=== PATIENT | female | born 1955 | race Caucasian/White ===

== ENCOUNTER 2021-01-03 12:41 | Outpatient (CLI) | payer OTHER, SELFPAY ==
--- NOTE | 2021-01-03 12:50 | USCV_ITS ---
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 Dr Beny Holcomb MD FAC (Electronically Signed) Final Date: 09 January 2021 20:56 S
== END 2021-01-03 12:42 | disposition home or self-care (01) ==
PROVIDERS: PCP Family Medicine; Visit Provider Family Medicine
DX: M79.605 Pain in left leg (principal)
CPT/HCPCS: 93922

== ENCOUNTER → 2022-02-16 14:33 | Outpatient (BNVA) | payer MEDICARE, SELFPAY | PROVIDERS: PCP Family Medicine; Visit Provider Family Medicine | DX: N39.0 Urinary tract infection, site not specified (principal); R39.9 Unspecified symptoms and signs involving the genitourinary system; R60.9 Edema, unspecified; M79.606 Pain in leg, unspecified; G47.9 Sleep disorder, unspecified | CPT/HCPCS: 81000 ==

== ENCOUNTER → 2022-03-13 11:08 | Outpatient (BNVA) | payer MEDICARE, SELFPAY | PROVIDERS: PCP Family Medicine; Visit Provider Clinical Nurse Specialist Adult Health | DX: R10.9 Unspecified abdominal pain (principal); R11.0 Nausea; K29.70 Gastritis, unspecified, without bleeding; K21.9 Gastro-esophageal reflux disease without esophagitis | CPT/HCPCS: 80053; 85025 ==

== ENCOUNTER → 2022-04-10 07:52 | Outpatient (BNVA) | payer MEDICARE, SELFPAY | PROVIDERS: PCP Family Medicine; Visit Provider Family Medicine | DX: K29.70 Gastritis, unspecified, without bleeding (principal); K21.9 Gastro-esophageal reflux disease without esophagitis; I10 Essential (primary) hypertension | CPT/HCPCS: 80061 ==

== ENCOUNTER → 2022-07-13 09:35 | Outpatient (BNVA) | payer MEDICARE, SELFPAY | PROVIDERS: PCP Family Medicine; Visit Provider Family Medicine | DX: Z00.00 Encounter for general adult medical examination without abnormal findings (principal); I10 Essential (primary) hypertension; Z12.11 Encounter for screening for malignant neoplasm of colon; Z12.39 Encounter for other screening for malignant neoplasm of breast; R07.89 Other chest pain | CPT/HCPCS: 80048 ==

== ENCOUNTER 2022-07-21 07:32 | Outpatient (CLI) | payer MEDICARE, SELFPAY ==
--- NOTE | 2022-07-21 07:30 | MM_ITS ---
WS: [id number] BILATERAL SCREENING DIGITAL TOMOSYNTHESIS MAMMOGRAM WITH CAD HISTORY: screening for breast cancer COMPARISON: 09/18/2018 and 03/03/2015 Bilateral CC and MLO views with tomosynthesis and synthetic mammography submitted. Computer aided det ection analyzed. Breast composition: The breasts are heterogeneously dense, which may obscure small masses. No suspici ous masses, microcalcifications or architectural distortion. Benign calcification central RIGHT breas t. MM/[place] [id number] IMPRESSION: BI-RADS: 2-Benign FOLLOW UP: 1 Year Follow-up
== END 2022-07-21 07:33 | disposition home or self-care (01) ==
PROVIDERS: PCP Family Medicine; Visit Provider Family Medicine
DX: Z12.31 Encounter for screening mammogram for malignant neoplasm of breast (principal)
CPT/HCPCS: 77063; 77067

== ENCOUNTER → 2022-10-04 09:02 | Outpatient (BNVA) | payer MEDICARE, SELFPAY | PROVIDERS: PCP Family Medicine; Visit Provider Podiatrist Foot & Ankle Surgery | DX: G57.62 Lesion of plantar nerve, left lower limb (principal); L60.3 Nail dystrophy | CPT/HCPCS: 64455; 73630; 99203; J1100; J3301; J3490 ==

== ENCOUNTER → 2022-11-08 11:06 | Outpatient (BNVA) | payer MEDICARE, SELFPAY | PROVIDERS: PCP Family Medicine; Visit Provider Podiatrist Foot & Ankle Surgery | DX: G57.62 Lesion of plantar nerve, left lower limb (principal); L60.3 Nail dystrophy | CPT/HCPCS: 99213 ==

== ENCOUNTER → 2023-04-24 11:53 | Outpatient (BNVA) | payer MEDICARE, SELFPAY | PROVIDERS: PCP Family Medicine; Visit Provider Clinical Nurse Specialist Adult Health | DX: Z23 Encounter for immunization (principal); I10 Essential (primary) hypertension | CPT/HCPCS: 80053; 80061; 85025 ==

== ENCOUNTER → 2023-04-25 06:59 | Outpatient (BNVA) | payer MEDICARE, SELFPAY | PROVIDERS: PCP Family Medicine; Visit Provider Podiatrist Foot & Ankle Surgery | DX: G57.63 Lesion of plantar nerve, bilateral lower limbs (principal) | CPT/HCPCS: 64455; J1100; J3301; J3490 ==

== ENCOUNTER → 2023-06-06 15:05 | Outpatient (BNVA) | payer MEDICARE, SELFPAY | PROVIDERS: PCP Family Medicine; Visit Provider Clinical Nurse Specialist Adult Health | DX: R00.0 Tachycardia, unspecified (principal); J06.9 Acute upper respiratory infection, unspecified | CPT/HCPCS: 87400; 87426 ==

== ENCOUNTER → 2023-08-09 09:51 | Outpatient (BNVA) | payer MEDICARE, SELFPAY | PROVIDERS: PCP Family Medicine; Visit Provider Podiatrist Foot & Ankle Surgery | DX: G57.61 Lesion of plantar nerve, right lower limb (principal) | CPT/HCPCS: 64455; J1100; J3301; J3490 ==

== ENCOUNTER → 2023-10-24 09:42 | Outpatient (BNVA) | payer MEDICARE, SELFPAY | PROVIDERS: PCP Family Medicine; Visit Provider Clinical Nurse Specialist Adult Health | DX: Z00.00 Encounter for general adult medical examination without abnormal findings (principal); E78.49 Other hyperlipidemia; I10 Essential (primary) hypertension; N95.1 Menopausal and female climacteric states; Z13.820 Encounter for screening for osteoporosis; Z79.899 Other long term (current) drug therapy | CPT/HCPCS: 80053; 80061; 82306; 83036; 85025 ==

== ENCOUNTER 2023-11-28 13:19 | Outpatient (CLI) | payer MEDICARE, SELFPAY ==
--- NOTE | 2023-11-28 13:30 | XR_ITS ---
WS: [email or web address] SCREENING DEXA SCAN [employer] CLINICAL INFORMATION: bone density screening COMPARISON: None. FINDINGS: The L1-L4 bone mineral density measures 0.945. This corresponds to a T score score of -2.1 and Z scor e of -0.9. Left femoral neck bone mineral density measures 0.828 g/cm2. This corresponds to a T score of -1.4 an d Z score of -0.4. Right femoral neck bone mineral density measures 0.857 g/cm2. This corresponds to a T score -1.2of an d Z score of -0.1. Mean femoral neck bone mineral density measures 0.843 g/cm2. This corresponds to a T score of -1.3 an d Z score of -0.3. XR/XR DEXA axial skeleton* [id number] IMPRESSION: Osteopenia lumbar spine. Osteopenia femoral necks. Patient's FRAX calculated 10 year probability for major osteoporotic fracture i s 7.0% and osteoporotic hip fracture is 1.4%.
--- NOTE | 2023-11-28 14:00 | MM_ITS ---
WS: [email or web address] BILATERAL 3D TOMOSYNTHESIS DIGITAL SCREENING MAMMOGRAPHY WITH CAD CLINICAL INFORMATION: breast cancer screening HISTORY: Screening mammogram. No current complaints. COMPARISON: 2022 TECHNIQUE: Bilateral CC and MLO views. FINDINGS: The breasts are composed of heterogeneous fibroglandular density tissue, which can limit the detectio n of small underlying mass lesions. No suspicious mass, asymmetry, calcifications, or architectural d istortion. No evidence of malignancy. Lucent centered calcification RIGHT breast. MM/[place] [id number] IMPRESSION: BI-RADS: 2-Benign FOLLOW UP: 1 Year Follow-up Recommend return to annual screening mammography.
== END 2023-11-28 13:20 | disposition home or self-care (01) ==
LOC: RAD 13:19
PROVIDERS: PCP Clinical Nurse Specialist Adult Health; Visit Provider Clinical Nurse Specialist Adult Health
DX: Z12.31 Encounter for screening mammogram for malignant neoplasm of breast (principal); Z13.820 Encounter for screening for osteoporosis; N95.1 Menopausal and female climacteric states; G57.60 Lesion of plantar nerve, unspecified lower limb; R92.333 Mammographic heterogeneous density, bilateral breasts; R92.1 Mammographic calcification found on diagnostic imaging of breast; M85.80 Other specified disorders of bone density and structure, unspecified site
CPT/HCPCS: 64455; 77063; 77067; 77080; J1100; J3301; J3490

== ENCOUNTER → 2024-07-02 08:15 | Outpatient (BNVA) | payer MEDICARE, SELFPAY | PROVIDERS: PCP Clinical Nurse Specialist Adult Health; Visit Provider Podiatrist Foot & Ankle Surgery | DX: G57.62 Lesion of plantar nerve, left lower limb (principal) | CPT/HCPCS: 64455; J1100; J3301; J3490 ==

== ENCOUNTER → 2024-08-13 07:09 | Outpatient (BNVA) | payer MEDICARE, OTHER, SELFPAY | PROVIDERS: PCP Clinical Nurse Specialist Adult Health; Visit Provider Podiatrist Foot & Ankle Surgery | DX: G57.62 Lesion of plantar nerve, left lower limb (principal) | CPT/HCPCS: 64455; J1100; J3301; J3490 ==

== ENCOUNTER 2025-03-05 08:16 | Outpatient (CLI) | payer MEDICARE, OTHER, SELFPAY ==
--- NOTE | 2025-03-05 08:24 | MM_ITS ---
WS: [email or web address] BILATERAL 3D TOMOSYNTHESIS DIGITAL SCREENING MAMMOGRAPHY WITH CAD CLINICAL INFORMATION: SCREENING HISTORY: Screening mammogram. No current complaints. COMPARISON: 2023 TECHNIQUE: Bilateral CC and MLO views. FINDINGS: The breasts are composed of heterogeneous fibroglandular density tissue, which can limit the detection of small underlying mass lesions. No suspicious mass, asymmetry, calcifications, or architectural distortion. No evidence of malignancy. Lucent centered calcification RIGHT breast MM/MM scr tomosynthesis [id number] IMPRESSION: DENSITY: The breasts are heterogeneously dense, which may obscure small masses. BI-RADS: 2 - Benign FOLLOW UP: 1 Year Follow-up Recommend return to annual screening mammography.
== END 2025-03-05 08:17 | disposition home or self-care (01) ==
LOC: RAD 08:18
PROVIDERS: PCP Clinical Nurse Specialist Adult Health; Visit Provider Electrodiagnostic Medicine
DX: Z12.31 Encounter for screening mammogram for malignant neoplasm of breast (principal); R92.333 Mammographic heterogeneous density, bilateral breasts; R92.323 Mammographic fibroglandular density, bilateral breasts; R92.1 Mammographic calcification found on diagnostic imaging of breast
CPT/HCPCS: 77063; 77067

== ENCOUNTER 2025-05-06 21:15 | Emergency (ER) | payer MEDICARE, SELFPAY ==
--- OUTSIDE RECORDS SUMMARY | 2025-05-06 21:25 | XMS_ITS ---
Author Organization Unknown Results OrderDate OrderTestName ResultName ResultDate Value Units Range AbnormalFlag ResultStatus ObservationNotes TestCode ResultCode DateRecorded AccessionNumber DiagnosticSectionCode DiagnosticSectionName Sequence Interpretation Custom CollectionStartDate CollectionEndDate 08/20/2024 00:00:00 CMP, SERUM OR PLASMA creatinine (serum) 6591-18-89J84:00:00 0.9 mg/dl 0.4-1.5 Final CMP, SERUM OR PLASMA Coding creatinine (serum) 08/20/2024 00:00: 00:00:98WRLlst8852-54-84Q58:00:51194.4x10 140.0-451.0Final Coding CBC Coding plt 08/20/2024 00:00: 00:00:00CMP, SERUM OR PLASMAosmolality 8967-80-86Z71:00:65993.2calcFinal Coding CMP, SERUM OR PLASMA Coding osmolality 08/20/2024 00:00: 00:00:00CMP, SERUM OR PLASMAtotal protein 0679-56-93S16:00:007.8g/dl6.0-8.5Final Coding CMP, SERUM OR PLASMA Coding total protein 08/20/2024 00:00:001 00:00:00MAMMO, SCREENING, DIGITAL, BILATERAL 0102-08-18J76:00:00 Coding MAMMO, SCREENING, DIGITAL, B ILATERAL Coding 03/05/2025 00:00: 00:00:89ZFHrpx4090-11-69Y32:00:0030.6pg27.0-32.0 Final Coding CBC Coding mch 08/20/2024 00:00: 00:00:03KLHujn6710-24-88M15:00:0011.0x104.0-10.5 highFinal Coding CBC Coding wbc 08/20/2024 00:00: 00:00:00CBCmonocytes %1927-12-90I07:00:006.4% 2.0-16.0Final Coding CBC Coding monocytes % 08/20/2024 00:00: 00:00:00LIPID PANEL, BWSFYguor6889-38-75Y87:00:00 71.0mg/dl0.0-150.0Final Coding LIPID PANEL, BLOOD Coding trig 08/20/2024 00:00: 00:00:00CMP, SERUM OR PLASMAaltv (sgpt) 5092-00-06S04:00:0021.0u/l13.0-69.0normalFinal Coding CMP, SERUM OR PLASMA Coding altv (sgpt) 08/20/2024 00:00: 00:00:00CMP, SERUM OR PLASMAalp phos 0313-28-64F20:00:89954.0u/l30.0-140.0normalFinal Coding CMP, SERUM OR PLASMA Coding alp phos 08/20/2024 00:00: 00:00:00LIPID PANEL, BLOODhdl - direct 9416-06-79G55:00:0078.0mg/dl>40.0Final Coding LIPID PANEL, BLOOD Coding hdl - direct 08/20/2024 00:00: 00:00:00CMP, SERUM OR PLASMAbun (blood urea nitrogen)2133-32-75F49:00:0020.0mg/dl10.0-26.0Final Coding CMP, SERUM OR PLASMA Coding bun (blood urea nitrogen) 08/20/2024 00:00: 00:00:00LIPID PANEL, BLOODvldl - direct 3509-47-25U56:00:0014.2mg/dlFinal Coding LIPID PANEL, BLOOD Coding vldl - direct 08/20/2024 00:00: 00:00:00CMP, SERUM OR YAHFOUk416236-60-10I04:00:00 28.0mmol/l22.0-31.0Final Coding CMP, SERUM OR PLASMA Coding c02 08/20/2024 00:00: 00:00:00CMP, SERUM OR PLASMAanion gap 1901-69-96W41:00:008.0calcFinal Coding CMP, SERUM OR PLASMA Coding anion gap 08/20/2024 00:00: 00:00:00CMP, SERUM OR PLASMAegfr calculated 8024-62-00Z13:00:0066.4Final Coding CMP, SERUM OR PLASMA Coding egfr calculated 08/20/2024 00:00: 00:00:00CMP, SERUM OR PLASMAbun/creatinine ratio 0050-37-89M40:00:0022.22ratioFinal Coding CMP, SERUM OR PLASMA Coding bun/creatinine ratio 08/20/2024 00:00: 00:00:00VITAMIN D, 25-HYDROXY, TOTAL, SERUMvitamin d,25-oh,total,qy7372-50-52V16:00:0048ng/qo97-097zvsfkeHrvth Coding VITAMIN D, 25-HYDROXY, TOTAL , SERUM Coding vitamin d,25-oh,total,ia vitamin d,25-oh,total,ia 08/20/2024 00:00: 00:00:00CMP, SERUM OR PLASMAtotal bilirubin 4249-50-82P04:00:000.8mg/dl0.2-1.3Final Coding CMP, SERUM OR PLASMA Coding total bilirubin 08/20/2024 00:00: 00:00:00CMP, SERUM OR PLASMAcalcium 8331-20-78E07:00:009.3mg/dl8.4-10.5Final Coding CMP, SERUM OR PLASMA Coding calcium 08/20/2024 00:00: 00:00:00CMP, SERUM OR PLASMAa/g ratio 4472-66-41C85:00:001.3ratioFinal Coding CMP, SERUM OR PLASMA Coding a/g ratio 08/20/2024 00:00: 00:00:69NRZogx8148-86-74S47:00:0095.5fl80.0-99.9 Final Coding CBC Coding mcv 08/20/2024 00:00: 00:00:00CBCmonocytes #8827-80-25F23:00:000.7x10 Final Coding CBC Coding monocytes # 08/20/2024 00:00: 00:00:00CMP, SERUM OR PLASMAalbumin 9520-59-79F22:00:004.4g/dl3.5-5.5Final Coding CMP, SERUM OR PLASMA Coding albumin 08/20/2024 00:00: 00:00:00CMP, SERUM OR PLASMAglucose 6447-13-93X54:00:0091.0mg/dl60.0-99.0Final Coding CMP, SERUM OR PLASMA Coding glucose 08/20/2024 00:00: 00:00:00LIPID PANEL, BLOODcholesterol 8594-45-42P22:00:60493.0mg/dl0.0-200.0highFinal Coding LIPID PANEL, BLOOD Coding cholesterol 08/20/2024 00:00: 00:00:93CDXjuf5429-47-77S98:00:0042.7%37.0-47.0 Final Coding CBC Coding hct 08/20/2024 00:00: 00:00:00CMP, SERUM OR PLASMApotassium 8520-98-14C47:00:004.0mmol/l3.5-5.1Final Coding CMP, SERUM OR PLASMA Coding potassium 08/20/2024 00:00: 00:00:00CMP, SERUM OR PLASMAglobulin 6978-25-75U03:00:003.4calcFinal Coding CMP, SERUM OR PLASMA Coding globulin 08/20/2024 00:00: 00:00:00CBCgranulcytes %1434-64-20Q83:00:0065.0% 30.0-70.0Final Coding CBC Coding granulcytes % 08/20/2024 00:00: 00:00:00CBClymphocytes %7444-80-35Z21:00:0026.5% 20.0-50.0Final Coding CBC Coding lymphocytes % 08/20/2024 00:00: 00:00:00CMP, SERUM OR PLASMAsodium 7172-18-92E18:00:34925.0mmol/l136.0-145.0Final Coding CMP, SERUM OR PLASMA Coding sodium 08/20/2024 00:00: 00:00:00LIPID PANEL, BLOODldl - direct 9296-13-62C36:00:17208.8mg/dl0.0-130.0highFinal Coding LIPID PANEL, BLOOD Coding ldl - direct 08/20/2024 00:00: 00:00:74VPTxrt0596-26-06K13:00:004.75x815.50-5.50 Final Coding CBC Coding rbc 08/20/2024 00:00: 00:00:00CBClymphocytes #3166-08-67M17:00:002.9x10 Final Coding CBC Coding lymphocytes # 08/20/2024 00:00: 00:00:63DWRhux8216-37-94U97:00:0013.7g/dl12.0-16.0 Final Coding CBC Coding hgb 08/20/2024 00:00: 00:00:00CMP, SERUM OR PLASMAast (sgot) 2927-01-04C13:00:0031.0u/l0.0-46.0Final Coding CMP, SERUM OR PLASMA Coding ast (sgot) 08/20/2024 00:00: 00:00:00CBCgranulcytes#6330-49-77H92:00:007.2x10 Final Coding CBC Coding granulcytes# 08/20/2024 00:00: 00:00:79RCWxbis9775-26-96R67:00:0032.1g/dl 32.0-36.0Final Coding CBC Coding mchc 08/20/2024 00:00: 00:00:00CMP, SERUM OR PLASMAchloride 0615-63-81D89:00:82821.0mmol/l98.0-110.0normalFinal Coding CMP, SERUM OR PLASMA Coding chloride 08/20/2024 00:00: 00:00:96TOSnre3040-52-54F50:00:0013.8%11.5-14.5 Final Coding CBC Coding rdw 08/20/2024 00:00:00
--- OUTSIDE RECORDS SUMMARY | 2025-05-06 21:25 | XMS_ITS | Clinical Summary ---
Author Organization [facility] on Address [address] [place] [address] SON Andrade [id number] Phone Care Team Providers Care Photo Producer Name Role Phone Jesus Murillo DO Primary Care Provider [phone] Social History Tobacco Use Types Packs/Day Years Used Date Smoking Tobacco: Never Assessed Comments Unknown Sex and Gender Information Value Date Recorded Sex Assigned at Not on file Legal Sex Female 3:48 PM CDT Gender Identity Not on file Sexual Orientation Not on file Plan of Treatment Health Maintenance Due Date Last Done Comments DTAP/TDAP/TD VACCINES (1 - Tdap) 09/05/1975 BREAST CANCER SCREENING 1996 COLORECTAL SCREENING 2001 Colorectal Cancer Screening 2001 FIT-DNA Q 3 years 2001 FIT/FOBT Q 1 year 2001 Flex Sig/CT Colonography Q 5 years 2001 PNEUMOCOCCAL VACCINE 50+ YEARS (1 of 1 - PCV) 09/05/19 07 ZOSTER VACCINE (1 of 2) 2006 OSTEOPOROSIS SCREENING 2021 INFLUENZA VACCINE (#1) 2025 RSV VACCINE (60+ or ) (1 - 1-dose 75+ series) 09/05/2031 Insurance [employer] EXCH[employer] [id number] [address] [id number] Care Teams Photo Producer Relationship Specialty Start Date End Date Jesus Murillo DO [address] [place] [address] PCP - General Family Practice 05/25/21
--- OUTSIDE RECORDS SUMMARY | 2025-05-06 21:25 | XMS_ITS | Continuity of Care Document ---
Author Organization Abrahan Acosta, [facility] ([facility]) Address [address] [place] [address] Assessment Encounter Date Assessment Date Assessment LastModified by Organization Details LastModified Time 03/03/2025 03/03/2025 Patient presente d to office today for their Medicare Annual Wellness Visit. Education was provided on healthy nutrition, including a diet rich in fruits and vegetables, minimizing simple carbohydrates, salt, and saturated fats. Encouraged regular cardiovascular exercise such as walking at least 30 minutes daily, 5 times per week. Emphasized preventive health measures and educated pt on fall prevention and community-based lifestyle interventions to help reduce health risks and promote healthy living. [email or web address] Not available 03/03/2025 08:28:59 Plan of Treatment Reminders Order Date Submit Date Provider Last Modified By Organization Details Last Modified Time Details Appointments None recorded. Lab None recorded. Referral None recorded. Procedures None recorded. Surgeries None recorded. Imaging MAMMO, screening, digital, bilateral 2024 025 asurface [facility], [address] [place], [address], 10:18:00 Medication Orders None recorded. Patient TargetsNo targets recorded. Patient Instructions Encounter Date Encounter Id Patient Instructions Last Modified By Organization Details Last Modified Time 03/03/2025 [id number] advance care planning: care instructions Not available 03/03/2025 09:12:38 nutrition for older adults: care instructions [email or web address] Not available 03/03/2025 09:12:38 preventing falls : care instructions [email or web address] Not available 03/03/2025 09:12:38 Learning About Being Physically Active [email or web address] Not available 03/03/2025 09:12:38 Discussed and explained advance directives such as standard forms to the . Face to face discussion lasted for a duration of ___ minutes. [email or web address] Not available 03/03/2025 07:38:02 Reason for Referral None Reported. Results Created Date Observation Date Name Description Value Unit Range Abnormal Flag Note LastModifiedBy Organization Detail LastModifiedTime 03/05/2003/05/2025 MAMMO , scree lewis, digit al, bilat eral No observ ation record ed. [facility] [address] [place], [address], 03/11/2025 11:51:46 Result Notes None recorded. Problems Name Problem SNOMED Code Status Onset Date Resolution Date Notes Provider Name and Address Organization Details Recorded Time Tachycar ileana 1772955 Completed 200408/20/2024 TACHYCAR ILEANA; 10/21/19 05 4:53PM by Jose Caceres MD, Office Visit; Promoted ; acuity set as *; Isela tomlin [facility] 5 09:04:02 History of hysterec colin 166313937 Completed 200408/20/2024 Hysterec colin; Vaginal; 10/21/19 05 4:53PM by Jose Caceres MD, Office Visit; Promoted ; acuity set as *; Isela tomlin [facility] 5 07:57:49 Insomnia 835624433 Active 2004 Insomnia ; 10/21/19 05 4:53PM by Jose Caceres MD, Office Visit; Promoted ; acuity set as *; Isela tomlin [facility] 5 07:57:51 [facility] katja 32774970 Active 2004 [facility]; 10/21/19 05 4:53PM by Jose Caceres MD, Office Visit; Promoted ; acuity set as *; Isela tomlin [facility] [place] 5 07:57:46 Anxiety disorder 262517896 Active [address] [facility] [place] 5 07:58:14 Gastroes ophageal reflux disease without esophagi tis 785835453 Active [address] [facility] [place] 5 07:58:22 Burnette neuroma of bilatera l feet 22603949828 367958 Active [address] [facility] [place] 5 09:04:33 Problem Notes None recorded. Procedures Surgical History Date Name Laterality Status Provider Name and Address Organization Details Recorded Time hysterectomy [facility] 09:02:30 section [facility]24 09:02:46 [facility] bladder [facility] 09:03:26 Imaging Results None recorded. Procedure Notes None recorded. Medical Equipment None Reported. Allergies No known drug allergies Medications Name Sig Start Date Stop Date Status Note LastModified by Organization Details LastModified Time Toprol XL 50 mg tablet,ex tended release QD 08/20 completed Needs appt and lab before more refills! !!!!!!!! !!!!!!!! !!!!; Recorded 11/16/19 06 8:19AM by Harini Solano LPN, Refill Request; Not Available Not Available Not Available atorvasta tin 40 mg tablet TAKE 1 TABLET EVERY EVENING 2024 active Not Available Not Available Not Avai lable benzonata te 200 mg capsule TAKE 1 CAPSULE BY MOUTH 3 TIMES A DAY NEEDED, FOR COUGH. active Not Available Not Available No t Available metoprolo l succinate ER 50 mg tablet,ex tended release 24 hr Take 1 tablet every day by oral route for 90 days, for blood pressure . 2024 active Not Available Not Available Not Avai lable prednison e 20 mg tablet Take 1 tablet every day by oral route for 6 days. 03/05 completed Not Available Not Available Not Available permethri n 5 % topical cream THOROUGH LY MASSAGE INTO SKIN FROM HEAD TO FOOT SOLES ONCE&ALTAF VE FOR 8-14 HOURS THEN THOROUGH LY WASH active Not Available Not Available No t Available amlodipin e 5 mg tablet Take 1 tablet every day by oral route for 90 days, for blood pressure . 2024 active Not Available Not Available Not Avai lable aspirin 81 mg tablet,de layed release Take 1 tablet every day by oral route. active Not Available Not Available No t Available alprazola m 0.5 mg tablet Take 1 tablet twice a day by oral route as needed, for severe anxiety. 2024 active Not Available Not Available Not Avai lable pantopraz ole 40 mg tablet,de layed release Take 1 tablet every day by oral route for 90 days, for acid reflux. 2024 active Not Available Not Available Not Avai lable Mevacor 20 mg tablet QHS / HS 08/20 completed Needs appt before more refills! !!!!!!!! !!!!; Recorded 08/30/19 06 7:58AM by Harini Solano LPN, Refill Request; Not Available Not Available Not Available losartan 100 mg tablet Take 1 tablet every day by oral route for 90 days, for blood pressure . 2024 active Not Available Not Available Not Avai lable magnesium 200 mg tablet Take 1 tablet every day by oral route. active Not Available Not Available No t Available CoQ-10 daily active Not Available Not Availa ble Not Available Alive Women 50 Pls Ult Potency one daily active Not Available Not Available No t Available Vitals Date Recorded Body height Body mass index (BMI) Body weight Oxygen saturation Heart rate Respiratory rate Systolic And Diastolic Provider Name and Address Organization Details Last Updated DateTime 5 165.1 cm 26 kg/m2 70363.8 1 g 98 % 83 /min 18 /min 120/72 mm[Hg] Isela Tao [facility] 08:25:07 Social History Question Answer Notes LastModified by Organizat ion Details LastModified Time Tobacco Smoking Status Former Smoker Isela Dinh tomlin [facility] 08/20/2024 09:05:28 Do You Have An Advance Directive? No Information not available 03/03/2025 Are You Blind Or Do You Have Difficulty Seeing? No Information not available 03/03/2025 What Is Your Level Of Caffeine Consumption? Moderate [email or web address] Information not available 08/20/2024 Are You Deaf Or Do You Have Serious Difficulty Hearing? No Information not available 03/03/2025 When Did You Quit Smoking? 16+yearssinc elastcigaret te Information not available 08/20/2024 What Is Your Current Housing Status? Lives In Own Home Lives Alone Information not available 03/03/2025 Do You Have A Medical Power Of Physical Chemist? No Information not available 03/03/2025 What Was The Date Of Your Most Recent Tobacco Screening? 02/20/2025 [email or web address] Information not available 02/20/2025 Have You Used IV Drugs? No [email or web address] Information not available 08/20/2024 Do You Have Difficulty Walking Or Climbing Stairs? No Information not available 03/03/2025 Do You Have Difficulties Handling Medications? No Information not available 03/03/2025 Do You Have Difficulty Handling Finances? No Information not available 03/03/2025 Do You Have Difficulty Using A Phone? No Information not available 03/03/2025 Do You Have Difficulty With Housekeeping And/or Laundry? No Information not available 03/03/2025 Sex: Unknown Functional Status Question Answer Note LastModified by Organizat ion Details LastModified Time Do you use any illicit or recreational drugs? Yes CBD gummies for sleep [email or web address] Information not available 08/20/2024 Do you or have you ever used any other forms of tobacco or nicotine? No Information not available 08/20/2024 What is your level of alcohol consumption? None Information not available 08/20/2024 Are you able to walk independently without assistance or assistive devices? YESWOREST Information not available 03/03/2025 Do you have difficulty doing errands alone? No Information not available 03/03/2025 Are you able to care for yourself independently? Yes Information not available 03/03/2025 Do you have difficulty dressing, bathing, grooming, or toileting? No Information not available 03/03/2025 Do you or have you ever used any nicotine-free cigarettes, vape, or chewing tobacco? No [email or web address] Information not available 08/20/2024 Mental Status Question Answer Note LastModified by Organization D etails LastModified Time Do you have difficulty concentrating, remembering or making decisions? No Information no t available 03/03/2025 Family History Relationship Description Onset Age of this Age Resolved Age Notes LastModified by Organization Details LastModified Time Sister Diabetes mellitus [email or web address] Not available 2024 09:00:05 Sister Heart disease [email or web address] Not available 2024 09:02:06 Father Multiple myeloma 75 [email or web address] Not available 2024 09:00:19 Brother Malignant neoplasm of esophagus 65 [email or web address] Not available 2024 09:00:30 Brother Myocardial infarction [email or web address] Not available 08/20 09:01:56 Mother Aneurysm 30 Not availabl e 08/20/2024 09:00:41 Paternal Aunt Malignant neoplasm of breast [email or web address] Not available 2024 09:01:10 Paternal Grandmother Malignant neoplasm of breast [email or web address] Not available 2024 09:01:10 Maternal Grandmother Malignant neoplasm of colon Not available 2024 09:01:24 Maternal Grandmother Diabetes mellitus [email or web address] Not available 2024 09:01:30 Maternal Aunt Malignant neoplasm of breast [email or web address] Not available 2024 09:01:40 Maternal Aunt Malignant neoplasm of breast Not available 2024 09:01:44 Medical History No medical history recorded. Gynecological HistoryNo gynecological history recorded. Obstetrics History GPAL:G 0 P 0 0 0 0 Immunizations Vaccine Type Date Status Note Provider Nam e and Address Organization Details Recorded Time zoster recombinant 9 [facility] 08:52:37 zoster recombinant 9 [facility]/20/2024 08:52:37 Influenza, high-dose, quadrivalent, PF 3 [facility] 08/20/2024 08:52:37 COVID-19, mRNA, LNP-S, PF, 30 mcg/0.3 mL dose [address] [facility] 08/20/2024 08:52:37 COVID-19, mRNA, LNP-S, PF, 30 mcg/0.3 mL dose 1 completed [facility] 08/20/2024 08:52:37 COVID-19, mRNA, LNP-S, PF, 30 mcg/0.3 mL dose 1 completed Isela Tao [facility] 08/20/2024 08:52:37 Influenza, split virus, trivalent, preservative 2 completed [facility] 08/20/2024 08:52:37 Influenza, split virus, trivalent, preservative 1 completed Iselacarmela Santose [facility] 08/20/2024 08:52:37 Past Encounters Encounter ID Performer Location Encounter Start Date Encounter Closed Date Diagnosis/Indication Diagnosis SNOMED-CT Code Diagnosis ICD10 Code Diagnosis IMO Codes Diagnosis Note [id number] IZAIAH HARRIS [facility] ([facility]) [address] [place] [address] 02/20/2025 15:15:34 02/20/2025 17:56:32 Acute upper respiratory infection 01823660 J06.9 2456 Discussed use of otc medication s for symptom management .Push oral fluids and rest.If you develop fever, sob, or start feeling worse then return for re-evaluat ion. [id number] Mitesh Dumont DO [facility] ([facility]) [address] [place] [address] 03/03/2025 08:11:23 03/09/2025 12:01:51 Screening mammography 74401710 Z12.31 Update Mammo. Screening for malignant neoplasm of colon 861590869 Z12.11 [facility]oscop y 11/20/19 at [facility], internal hemorrhoid s, repeat 10 years. Preventive procedure 169 445976 Z00.00 [id number] Advised pt to work on MPOA and Advance Directive, when she gets these done to bring us copies. Essential hypertension 16658130 I10 Stable, continue Amlodipine , Metoprolol , Losartan. Health Concerns Section Related Observation LastModified by Organization Detai ls LastModified Time None Recorded Concern Status LastModified by Organization Details LastModified Time None Recorded Payers Encounter Date Sequence Insurance Name Policy Number Policy Alaniz Covered Member ID Alaniz Member ID Guarantor Name 03/03/2025 1 MEDICARE [place]: [employer] Zohra Jackson [id number] Zohra Deb Manuel 03/03/2025 2 [employer] (MEDICARE SUPPLEMENT) Zohra Jackson [id number] Zohra Boyd Manuel Notes Date Note Type Note Provider Name and Address Organization Details Recorded Time 03/03/2025 text/html Medicare Annual Wellness VisitReported by PatientSocial/Behavio ral HistoryFor physical activity, patient reportsdoes not exercise on a regular basisbut reportsrecent increase in physical activityandgood physical condition. For diet and nutrition, patient reportshealthy diet. For fracture risk, patient reportsno history of fractures,no recent explained fracture,no sudden unexplained fractures, andno previous musculoskeletal injuries.Mental Status:For depression risk, patient reportsnever feels sad, empty, or tearful,no loss of interest in activities,no significant changes in weight,no sleep disturbances or insomnia,no agitation,no loss of energy,no feelings of worthlessness or guilt,no thoughts of suicide,no history of depression, andno history of mood disorders. For orientation, patient reportsno disorientation to time,no disorientation to date, andno disorientation to place. For concentration and memory, patient reportsno decreased concentrating ability,no memory lapses or loss, anddoes not forget words. For speech/motor difficulties, patient reportsno speech difficulties,no difficulty expressing formulated concepts,no difficulty with fine manipulative tasks,no difficulty writing/copying,no slowed reaction time, anddoes not knock things over when trying to pick them up.Functional AbilityFor hearing, patient reportsno loss of hearing. For vision, patient reportsno vision problems. For activities of daily living, patient reportsable to bathe with limited or no assistance,able to contol urination and bowels,able to dress with limited or no assistance,able to feed self with limited or no assistance,able to get out of chair or bed with limited or no assistance,able to groom with limited or no assistance, andable to toilet with limited or no assistance. For instrumental activities of daily living, patient reportsable to do house work with limited or no assistance,able to grocery shop with limited or no assistance,able to manage medications with limited or no assistance,able to manage money with limited or no assistance,able to prepare meals with limited or no assistance, andable to use the phone with limited or no assistance. For falls risk assessment, patient reportsno frequent falls while walking,no fall in the past year,no fall since last visit, andno dizziness/vertigo. For home safety, patient reportsno unsafe tamara hazzards,no unsafe stairs,no unsafe gas appliances,working smoke/co detectors,wears protective head gear for biking/high velocity,use of seatbelts,practicing 'safer sex',no vision or hearing loss while driving,no fire arms,has hand bars in the bathroom/shower, andgood lighting in the home.ROS as noted in the HPI Pt presents for Medicare annual wellness visit Doing well. No recent ER visits/ hospitalizations. Continues medications as prescribed, tolerating well. Mood stable, denies any severe anxiety or depression. She admits she doesn't have any interest in leaving the house, worked at the same place for 41 years and is completely happy just staying home. She does get out and do things occasionally. She was seen in [place] on 02/20/25 for URI, treated with Prednisone and Benzonatate, admits she only took 1 day of Prednisone and felt better so didn't continue. No recent fall or injury. No recent change in memory. For years she has gone into a room and forgotten what she went in there for, has to go back and start over.Occasionally forgets a name when trying to write something down. No Advance Directive [facility]. She has talked to her daughter about this several times, however they haven't ever gone and had anything official done. Lives alone, no issues with performing ADL's. Mammo last 11/28/23: benign, recommend 1 year f/u. Colonoscopy 11/20/19 at [facility] with myself: internal hemorrhoids, repeat 10 years. Bone Scan 11/28/23:IMPRESSION:Os teopenia lumbar spine. Osteopenia femoral necks.Patient's FRAX calculated 10 year probability for major osteoporotic fracture is 7.0% and osteoporotic hip fracture is 1.4%. Former smoker Mitesh Dumont, DO [address] [place], [phone], [facility] [place] 03/03/2025 09:12:14 OBGyn Episode No OBEpisode recorded.
--- OUTSIDE RECORDS SUMMARY | 2025-05-06 21:26 | XMS_ITS | Data Portability ---
Author Organization [facility] Abrahan Ron [facility] Address [address] [id number] Assessment Encounter Date Assessment Date Assessment LastModified by Organization Details LastModified Time 08/20/2024 08/20/2024 Document scribed by Abilio Maldonado, Grocery Clerk Selling. I was present during interview and exam. I have reviewed and agree with above documentation. Dr. Mitesh Dumont. A Care Coordination Assessment form was filled out as part of this patient's office visit today. Counseled on Medicare Wellness, will see pt every 6 months, once yearly for Medicare wellness, once yearly for f/u with lab. I reviewed [facility] records, and confirmed mammogram, bone density scan,. no recent colonoscopy. will try to obtain [facility] records for this. [email or web address] Not available 08/20/2024 09:35:12 03/03/2025 03/03/2025 Patient presente d to office [...] Modified Time Details Appointments None recorded. Lab vitamin D, 25-hydroxy, total, serum 2024 025 Boxed [facility], [address] [place] [address] 248, [address] [place], [address], 07:23:51 CMP, serum or plasma 2024 025 [facility], [address], [facility], [place], [address], 11:33:41 lipid panel, blood 2024 025 [facility], [address], [address], [place], [address], 11:33:44 CBC 2024 025 [facility], [address], [facility], [place], [address], 11:00:14 Referral None recorded. Procedures None recorded. Surgeries None recorded. Imaging MAMMO, screening, digital, bilateral 2024 025 [facility], [address] [place], [address], 10:18:00 Medication Orders benzonatate 200 mg capsule 2024 025 [facility] #[id number], [address], [facility], [place], [address], 15:31:56 prednisone 20 mg tablet 2024 025 [facility] #[id number], [address], [place], [address], 05:01:15 permethrin 5 % topical cream 2024 025 [facility] #[id number], [address], [facility], [place], [address], 17:24:41 pantoprazol e 40 mg tablet,mahin yed release 2024 025 [facility], [address], [place], [address], 09:34:31 amlodipine 5 mg tablet 2024 025 [facility], [address], [place], [address], 09:34:30 losartan 100 mg tablet 2024 025 [facility], [address], [place], [address], 09:34:31 metoprolol succinate ER 50 mg tablet,exte nded release 24 hr 2024 025 [facility], [address], [place], [address], 09:34:30 alprazolam 0.5 mg tablet 2024 025 [facility], [address], [place], [address], 09:34:33 Patient TargetsNo targets recorded. Patient Instructions Encounter Date Encounter Id Patient Instructions Last Modified By Organization Details Last Modified Time 03/03/2025 [id number] advance care planning: care instructions [email or web address] Not available 03/03/2025 09:12:38 nutrition for older adults: care instructions [email or web address] Not available 03/03/2025 09:12:38 preventing falls : care instructions [email or web address] Not available 03/03/2025 09:12:38 Learning About Being Physically Active [email or web address] Not available 03/03/2025 09:12:38 Discussed and explained advance directives such as standard forms to the . Face to face discussion lasted for a duration of ___ minutes. [email or web address] Not available 03/03/2025 07:38:02 Reason for Referral None Reported. Results Created Date Observation Date Name Description Value Unit Range Abnormal Flag Note LastModifiedBy Organization Detail LastModifiedTime 08/21/1908/20/2024 CBC WBC 11.0 x10 4.0-10 .5 high Not Available [facility] [address], [place], [address], 08/20/2024 11:00:14 08/21/19 25 08/20/2024 CBC RBC 4.47 x10 3.50-5 .50 Not Available [facility] [address], [place], [address], 08/20/2024 11:00:14 08/21/1908/20/2024 CBC HGB 13.7 g/dL 12.0-1 6.0 Not Available [facility] [address] [facility], [place], [address], 08/20/2024 11:00:14 08/21/1908/20/2024 CBC HCT 42.7 % 37.0-4 7.0 Not Available [facility] [address] [facility], [place], [address], 08/20/2024 11:00:14 08/21/1908/20/2024 CBC MCV 95.5 fL 80.0-9 9.9 Not Available [facility] [address] [facility] [address] [facility], [place], [address], 08/20/2024 11:00:14 08/21/1908/20/2024 CBC MCH 30.6 pg 27.0-3 2.0 Not Available [facility] [address] [facility], [place], [address], 08/20/2024 11:00:14 08/21/1908/20/2024 CBC MCHC 32.1 g/dL 32.0-3 6.0 Not Available [facility] [address] [facility], [place], [address], 08/20/2024 11:00:14 08/21/19 25 08/20/2024 CBC RDW 13.8 % 11.5-1 4.5 Not Available [facility] [address] [facility], [place], [address], 08/20/2024 11:00:14 08/21/19 25 08/20/2024 CBC plt 294.4 x10 140.0- 451.0 Not Available [facility] [address] [facility] [address], [place], [address], 08/20/2024 11:00:14 08/21/1908/20/2024 CBC lymphocytes % 26.5 % 20.0-5 0.0 Not Available [facility] [address] [facility] [address], [place], [address], 08/20/2024 11:00:14 08/21/19 25 08/20/2024 CBC granulcytes % 65.0 % 30.0-7 0.0 Not Available [facility] [address] [address], [place], [address], 08/20/2024 11:00:14 08/21/19 25 08/20/2024 CBC monocytes % 6.4 % 2.0-16 .0 Not Available [facility] [address] [facility], [place], [address], 08/20/2024 11:00:14 08/21/19 25 08/20/2024 CBC granulcytes# 7.2 x10 Not Briana ilable [facility] [address] [facility], [place], [address], 08/20/2024 11:00:14 08/21/19 25 08/20/2024 CBC lymphocytes # 2.9 x10 Not Available [facility] [address] [facility] [address], [place], [address], 08/20/2024 11:00:14 08/21/19 25 08/20/2024 CBC monocytes # 0.7 x10 Not [facility] [address] [facility] [address], [place], [address], 08/20/2024 11:00:14 08/21/19 25 08/20/2024 CMP (FEMA LE) glucose 91.0 mg/dL 60.0-9 9.0 Not Available [facility] [address] [facility] [address], [place], [address], 08/20/2024 11:33:41 08/21/19 25 08/20/2024 CMP (FEMA LE) BUN (blood urea nitrogen) 20.0 mg/dL 10.0-2 6.0 Not Available [facility] [address] [facility] [address], [place], [address], 08/20/2024 11:33:41 08/21/19 25 08/20/2024 CMP (FEMA LE) creatinine (serum) 0.9 mg/dL 0.4-1. 5 Not Available [facility] [address] [facility] [address], [place], [address], 08/20/2024 11:33:41 08/21/19 25 08/20/2024 CMP (FEMA LE) BUN/creatini ne ratio 22.22 ratio Not Available [facility] [address] [facility], [place], [address], 08/20/2024 11:33:41 08/21/19 25 08/20/2024 CMP (FEMA LE) eGFR calculated 66.4 Not Available [facility] [address] [facility], [place], [address], 08/20/2024 11:33:41 08/21/19 25 08/20/2024 CMP (FEMA LE) total protein 7.8 g/dL 6.0-8. 5 Not Available [facility] [address] [facility], [place], [address], 08/20/2024 11:33:41 08/21/19 25 08/20/2024 CMP (FEMA LE) total bilirubin 0.8 mg/dL 0.2-1. 3 Not Available [facility] [address] [facility], [place], [address], 08/20/2024 11:33:41 08/21/19 25 08/20/2024 CMP (FEMA LE) albumin 4.4 g/dL 3.5-5. 5 Not Available [facility] [address] [facility], [place], [address], 08/20/2024 11:33:41 08/21/19 25 08/20/2024 CMP (FEMA LE) globulin 3.4 calc Not Available [email or web address] [address] [facility], [place], [address], 08/20/2024 11:33:41 08/21/19 25 08/20/2024 CMP (FEMA LE) AST (SGOT) 31.0 U/L 0.0-46 .0 Not Available [facility] [address] [facility], [place], [address], 08/20/2024 11:33:41 08/21/19 25 08/20/2024 CMP (FEMA LE) altv (SGPT) 21.0 U/L 13.0-6 9.0 normal Not Available [facility] [address] [facility], [place], [address], 08/20/2024 11:33:41 08/21/19 25 08/20/2024 CMP (FEMA LE) A/G ratio 1.3 ratio Not Available [facility] [address] [facility], [place], [address], 08/20/2024 11:33:41 08/21/19 25 08/20/2024 CMP (FEMA LE) ALP phos 108.0 U/L 30.0-1 40.0 normal Not Available [facility] [address] [facility] [address], [place], [address], 08/20/2024 11:33:41 08/21/19 25 08/20/2024 CMP (FEMA LE) calcium 9.3 mg/dL 8.4-10 .5 Not Available [facility] [address] [facility], [place], [address], 08/20/2024 11:33:41 08/21/19 25 08/20/2024 CMP (FEMA LE) sodium 139.0 mmol/ L 136.0- 145.0 Not Available [facility] [address] [facility] [address], [place], [address], 08/20/2024 11:33:41 08/21/19 25 08/20/2024 CMP (FEMA LE) potassium 4.0 mmol/ L 3.5-5. 1 Not Available [facility] [address] [facility] [address], [place], [address], 08/20/2024 11:33:41 08/21/19 25 08/20/2024 CMP (FEMA LE) chloride 103.0 mmol/ L 98.0-1 10.0 normal Not Available [facility] [address] [facility], [place], [address], 08/20/2024 11:33:41 08/21/19 25 08/20/2024 CMP (FEMA LE) C02 28.0 mmol/ L 22.0-3 1.0 Not Available [facility] [address] [facility], [place], [address], 08/20/2024 11:33:41 08/21/19 25 08/20/2024 CMP (FEMA LE) anion gap 8.0 calc Not Available [facility] [address] [facility] [address], [place], [address], 08/20/2024 11:33:41 08/21/19 25 08/20/2024 CMP (FEMA LE) osmolality 289.2 calc Not Available [facility] [address] [facility] [address], [place], [address], 08/20/2024 11:33:41 08/21/19 25 08/20/2024 LIPID PROFI LE (FEMA LE) cholesterol 243.0 mg/dL 0.0-20 0.0 high Not Available [facility] [address] [facility] [address], [place], [address], 08/20/2024 11:33:44 08/21/19 25 08/20/2024 LIPID PROFI LE (FEMA LE) trig 71.0 mg/dL 0.0-15 0.0 Not Available [facility] [address] [facility] [address], [place], [address], 08/20/2024 11:33:44 08/21/19 25 08/20/2024 LIPID PROFI LE (FEMA LE) HDL - direct 78.0 mg/dL >40.0 Not Available [facility] [address] [facility] [address], [place], [address], 08/20/2024 11:33:44 08/21/19 25 08/20/2024 LIPID PROFI LE (FEMA LE) VLDL - direct 14.2 mg/dL Not Available [facility] [address] [facility] [address], [place], [address], 08/20/2024 11:33:44 08/21/19 25 08/20/2024 LIPID PROFI LE (FEMA LE) LDL - direct 150.8 mg/dL 0.0-13 0.0 high Not Available [facility] [address] [facility] [address], [place], [address], 08/20/2024 11:33:44 08/21/19 25 08/21/2024 VITAM IN D,25- OH,TO SHASHA,I A vitamin D,25-oh,tota l,ia 48 NG/mL 30-100 normal Vitam in D Statu s 25-OH Vitam in D: Defic iency : <20 ng/mL Insuf ficie ncy: 20 - 29 ng/mL Optim al: > or = 30 ng/mL For 25-OH Vitam in D testi ng on patie nts on D2-merritt pplem entat ion and patie nts for whom quant itati on of D2 and D3 fract ions is requi red, the [employer] e[employer](TM ) 25-OH VIT D, (D2,D 3), LC/MS /MS is recom ravinder d: order code 19857 (heather ents >2yrs ). See Note 1 Note 1 For addit ional infor atiya vicente refer to http: //[facility] nubia mcneil.Que stDia gnost ics.c om/fa q/FAQ 199 (This link is being provi ded for infor obed torres/ educkrystle steve purpo ses only. ) Not Available [facility] [address] [place], [address], 08/21/2024 07:23:51 08/21/19 25 11/28/2023 MAMMO , scree lewis, digit al, bilat [facility] [address] [place] [address] [phone] Mammog hayley Report Signed Patien t: Zohra Jackson Unit #: [id number] : [id number] Age/Se x: 68 / F ADM Date: Loc: RAD Room/B ed: Attend ing Dr: Peter red Provid er/Ord ering MD: Peter Louis APRN Date of Servic e: Proced ure(s) : [place] [id number] Access ion Number (s): [id number] [id number] Report Number : [id number] WS: OMCRAD 2 BILATE RAL 3D TOMOSY NTHESI S DIGITA L SCREEN ING MAMMOG HAYLEY WITH CAD CLINIC AL INFORM ATION: breast cancer screen ing HISTOR Y: Screen ing mammog vickie. No curren t compla ints. COMPAR HITESH: 2022 TECHNI QUE: Bilate ral CC and MLO views. FINDIN GS: The breast s are compos ed of hetero geneou s fibrog landul ar densit y tissue , which can limit the detect ion of small underl davide mass lesion s. No suspic ious mass, asymme try, calcif icatio ns, or zahra ectura l distor tion. No eviden ce of malign hanna. [facility] ed calcif icatio n RIGHT breast . ACCESS ION #: [id number] ZA MM/[place] [id number] IMPRES AMENA: BI-RAD S: 2-Mina gn FOLLOW UP: 1 Year Follow -up Recomm end return to annual screen ing mammog hayley. Dictat ed By: Deondre Simmons MD Signed By: Deondre Simmons MD Signed Date/T tamara: 0909 DD/DT: 0907 [email or web address] Not Available 2024 09:22:26 08/21/19 25 11/28/2023 bone densi [facility] [address] [place] [id number] X[address] t: Zohra Jackson Unit #: [id number] : [id number] Age/Se x: 68 / F ADM Date: Loc: RAD Room/B ed: Attend ing Dr: Peter red Provid er/Ord ering MD: Peter Louis APRN Date of Servic e: Proced ure(s) : XR DEXA axial skelet on* [id number] Access ion Number (s): [id number] ZA Report Number : [id number] WS: OMCRAD 2 SCREEN ING DEXA SCAN Communication Specialist LimitedXA CLINIC AL INFORM ATION: bone densit y screen ing COMPAR HITESH: None. FINDIN GS: The L1-L4 bone minera l densit y measur es 0.945. This corres ponds to a T score score of -2.1 and Z score of -0.9. Left femora l neck bone minera l densit y measur es 0.828 g/cm2. This corres ponds to a T score of -1.4 and Z score of -0.4. Right femora l neck bone minera l densit y measur es 0.857 g/cm2. This corres ponds to a T score -1.2of and Z score of -0.1. Mean femora l neck bone minera l densit y measur es 0.843 g/cm2. This corres ponds to a T score of -1.3 and Z score of -0.3. ACCESS ION #: [id number] ZA XR/XR DEXA axial skelet on* 29974 IMPRES AMENA: Osteop enia lumbar spine. Osteop enia femora l necks. Patien t's FRAX calcul ated 10 year probab ility for major osteop orotic fractu re is 7.0% and osteop orotic hip fractu re is 1.4%. Dictat ed By: Deondre Simmons MD Signed By: Deondre Simmons MD Signed Date/T tamara: 1526 DD/DT: 1525 [email or web address] Not Available 2024 09:24:06 03/05/2003/05/[address], digit al, bilat eral No observ ation record ed. [facility] [address] [place], [address], 03/11/2025 11:51:46 Result Notes Documentation Provider Name and Address Organization Details Recorded Time Mammo, Screening, Digital, Bilateral : [employer] [id number] Mammography Report Signed Patient: Zohra Jackson Unit #: [id number] : 1955 Age/Sex: 68 / F ADM Date: 11/28/23 Loc: RAD Room/Bed: Attending Dr: Peter Loving PLATING TECHNICIAN-C Ordering Provider/Ordering MD: Peter Loving APRN Date of Service: 11/28/23 Procedure(s): [place] [address] Accession Number(s): [id number] Report Number: [id number] WS: OMCRAD2 BILATERAL 3D TOMOSYNTHESIS DIGITAL SCREENING MAMMOGRAPHY WITH CAD CLINICAL INFORMATION: breast cancer screening HISTORY: Screening mammogram. No current complaints. COMPARISON: 2022 TECHNIQUE: Bilateral CC and MLO views. FINDINGS: The breasts are composed of heterogeneous fibroglandular density tissue, which can limit the detection of small underlying mass lesions. No suspicious mass, asymmetry, calcifications, or architectural distortion. No evidence of malignancy. Lucent centered calcification RIGHT breast. MM/[place] [address] IMPRESSION: BI-RADS: 2-Benign FOLLOW UP: 1 Year Follow-up Recommend return to annual screening mammography. Dictated By: Say Simmons MD Signed By: Say Simmons MD Signed Date/Time: 11/29/23908 DD/ 6 Abilio tomlin [facility] 08/20/2024 09:22:26 Problems Name Problem SNOMED Code Status Onset Date Resolution Date Notes Provider Name and Address Organization Details Recorded Time Tachycar ileana 8641885 Completed 200408/20/2024 TACHYCAR ILEANA; 10/21/19 05 4:53PM by Jose Caceres MD, Office Visit; Promoted ; acuity set as *; Isela tomlin [facility] 09:04:02 History of hysterec colin 931373758 Completed 200408/20/2024 Hysterec colin; Vaginal; 10/21/19 05 4:53PM by Jose Caceres MD, Office Visit; Promoted ; acuity set as *; [facility] 5 07:57:49 Insomnia 036215716 Active 2004 Insomnia ; 10/21/19 05 4:53PM by Jose Caceres MD, Office Visit; Promoted ; acuity set as *; [facility] 5 07:57:51 [facility] hyperten amena 38206928 Active 2004 [facility] Hyper[facility] amena; 10/21/19 05 4:53PM by Jose Caceres MD, Office Visit; Promoted ; acuity set as *; [facility] 5 07:57:46 Anxiety disorder 431518035 Active 2024 Iselalalitha Santose [facility] 5 07:58:14 Gastroes ophageal reflux disease without esophagi tis 981055123 Active 2024 Iselalalitha Santosbrynn [facility] 5 07:58:22 Burnette neuroma of bilatera l feet 02469383031 743074 Active 2024 Iselalalitha Santosbrynn [facility] 5 09:04:33 Problem Notes None recorded. Procedures Surgical History Date Name Laterality Status Provider Name and Address Organization Details Recorded Time hysterectomy completed Isela Tao [facility] 08/20/2024 09:02:30 section completed Isela Tao [facility] 08/20/2024 09:02:46 procedure on urinary bladder completed Isela Tao [facility] Abrahan 08/20/2024 09:03:26 Imaging Results None recorded. Procedure [...] No t Available Vitals Date Recorded Body weight Body mass index (BMI) Body height Heart rate Oxygen saturation Respiratory rate Systolic And Diastolic Provider Name and Address Organization Details Last Updated DateTime 5 73291.5 1 g 26 kg/m2 165.1 cm 80 /min 94 % 18 /min 128/88 mm[Hg] Isela Tao [facility] 5 09:10:03 Date Recorded Body height Body mass index (BMI) Body weight Respiratory rate Oxygen saturation Heart rate Body temperature Systolic And Diastolic Provider Name and Address Organization Details Last Updated DateTime 5 165.1 cm 26.7 kg/m2 99158.1 8 g 16 /min 98 % 98 /min 97.5 [degF] 124/78 mm[Hg] YANDEL FAY [facility] 5 17:16:31 Date Recorded Body height Body mass index (BMI) Body weight Oxygen saturation Heart rate Respiratory rate Body temperature Systolic And Diastolic Provider Name and Address Organization Details Last Updated DateTime 5 165.1 cm 26 kg/m2 42965.4 1 g 98 % 86 /min 16 /min 98.2 [degF] 134/70 mm[Hg] Beba Davis [facility] 5 15:24:09 Date Recorded Body height Body mass index (BMI) Body weight Oxygen saturation Heart rate Respiratory rate Systolic And Diastolic Provider Name and Address Organization Details Last Updated DateTime 5 165.1 cm 26 kg/m2 31144.8 1 g 98 % 83 /min 18 /min 120/72 mm[Hg] Isela Tao [facility] 08:25:07 Social History Question Answer Notes LastModified by Organizat ion Details LastModified Time Tobacco Smoking Status Former Smoker Isela Tao nabor [facility] 08/20/2024 09:05:28 Do You Have An Advance Directive? No Information not available 03/03/2025 Are You Blind Or Do You Have Difficulty Seeing? No Information not available 03/03/2025 What Is Your Level Of Caffeine Consumption? Moderate Information not available 08/20/2024 Are You Deaf Or Do You Have Serious Difficulty Hearing? No Information not available 03/03/2025 When Did You Quit Smoking? 16+yearssinc elastcigaret te [email or web address] Information not available 08/20/2024 What Is Your Current Housing Status? Lives In Own Home Lives Alone Information not available 03/03/2025 Do You Have A Medical Power Of Client Service Associate? No Information not available 03/03/2025 What Was The Date Of Your Most Recent Tobacco Screening? 02/20/2025 [email or web address] Information not available 02/20/2025 Have You Used IV Drugs? No Information not available 08/20/2024 Do You Have [...] recreational drugs? Yes CBD gummies for sleep [email or web address] Information not available 08/20/2024 Do you or have you ever used any other forms of tobacco or nicotine? No [email or web address] Information not available 08/20/2024 What is your level of alcohol consumption? None [email or web address] Information not available 08/20/2024 Are you able [...] nicotine-free cigarettes, vape, or chewing tobacco? No Information not available 08/20/2024 Mental Status Question Answer Note LastModified by Organization D etails LastModified Time Do you have difficulty concentrating, remembering or making decisions? No Information no t available 03/03/2025 Family History Relationship Description Onset Age of this Age Resolved Age Notes LastModified by Organization Details LastModified Time Sister Diabetes mellitus [email or web address] Not available 2024 09:00:05 Sister Heart disease Not available 2024 09:02:06 Father Multiple myeloma 75 [email or web address] Not available 2024 09:00:19 Brother Malignant neoplasm of esophagus 65 [email or web address] Not available 2024 09:00:30 Brother Myocardial infarction [email or web address] Not available 08/20 09:01:56 Mother Aneurysm 30 Not availabl e 08/20/2024 09:00:41 Paternal Aunt Malignant neoplasm of breast Not available 2024 09:01:10 Paternal Grandmother Malignant neoplasm of breast Not available 2024 09:01:10 Maternal Grandmother Malignant neoplasm of colon [email or web address] Not available 2024 09:01:24 Maternal Grandmother Diabetes mellitus [email or web address] Not available 2024 09:01:30 Maternal Aunt Malignant neoplasm of breast [email or web address] Not available 2024 09:01:40 Maternal Aunt Malignant neoplasm of breast [email or web address] Not available 2024 09:01:44 Medical History No medical history recorded. Gynecological HistoryNo gynecological history recorded. Obstetrics History GPAL:G 0 P 0 0 0 0 Immunizations Vaccine Type Date Status Note Provider Nam e and Address Organization Details Recorded Time zoster recombinant 9 completed [facility] 08/20/2024 08:52:37 zoster recombinant 9 completed Isela Dinh tomlin [facility] 08/20/2024 08:52:37 Influenza, high-dose, quadrivalent, PF 3 completed Iselacarmela tomlin [facility] 08/20/2024 08:52:37 COVID-19, mRNA, LNP-S, PF, 30 mcg/0.3 mL dose 1 completed Isela tomlin [facility] 08/20/2024 08:52:37 COVID-19, mRNA, LNP-S, PF, 30 mcg/0.3 mL dose 1 completed Isela tomlin [facility] 08/20/2024 08:52:37 COVID-19, mRNA, LNP-S, PF, 30 mcg/0.3 mL dose 1 completed Isela tomlin [facility] 08/20/2024 08:52:37 Influenza, split virus, trivalent, preservative 2 completed Iselacarmela tomlin [facility] 08/20/2024 08:52:37 Influenza, split virus, trivalent, preservative 1 [facility] 08:52:37 Past Encounters Encounter ID Performer Location Encounter Start Date Encounter Closed Date Diagnosis/Indication Diagnosis SNOMED-CT Code Diagnosis ICD10 Code Diagnosis IMO Codes Diagnosis Note [id number] Mitesh Dumont DO [facility] ([facility]) [address] [place] [address] [phone] 08/20/2024 08:47:11 08/20/2024 11:27:36 Anxiety disorder 614101182 F41.9 Continue Xanax as needed. Essential hypertension 91478364 I10 Stable, continue Amlodipine , Metoprolol , Losartan. Gastroesop hageal reflux disease without esophagitis 185237939 K21.9 Stable, continue Pantoprazo le. Burnette wendy fransisca of bilateral feet 6039333201 8045942 G57.[address] Farias. Vitamin D deficiency 347 53568 E55.9 Lab today, consider taking just VitD, without the Ca. [id number] IZAIAH HARRIS [facility] ([facility]) [address] [place] [address] [phone] 12/25/2024 17:09:43 01/04/2025 19:26:42 Infestation by Trombicula 18061631 B88.0 946502 Discussed use of permethrin tonight. May continue using otc anti itch creams. return if you develop new/worsen ing s/s no signs of bacterial infection. [id number] IZAIAH HARRIS [facility] ([facility]) [address] [place] [address] [phone] 5 02/20/2025 15:15:34 02/20/2025 17:56:32 Acute upper respiratory infection 22237525 J06.9 2456 Discussed use of otc medication s for symptom management .Push oral fluids and rest.If you develop fever, sob, or start feeling worse then return for re-evaluat ion. [id number] Mitesh Dumont DO [facility] ([facility]) [address] [place] [phone] 03/03/2025 08:11:23 03/09/2025 12:01:51 Screening mammography 02741157 Z12.31 Update Mammo. Screening for malignant neoplasm of colon 841614561 Z12.11 Colonoscop y 11/20/19 at [facility], internal hemorrhoid s, repeat 10 years. Preventive procedure 169 302949 Z00.00 [id number] Advised pt to work on MPOA and Advance Directive, when she gets these done to bring us copies. Essential hypertension 49329112 I10 Stable, continue Amlodipine , Metoprolol , Losartan. Health Concerns Section Related Observation LastModified by Organization Detai ls LastModified Time None Recorded Concern Status LastModified by Organization Details LastModified Time None Recorded Advance Directives Directive N: Payers Insurance Date Sequence Insurance Name Policy Number Policy Alaniz Covered Member ID Alaniz Member ID Guarantor Name 02/20/2025 1 MEDICARE [place]: WPS Zohra Jackson [id number] Zohra Jackson 03/09/2025 2 [employer] (MEDICARE SUPPLEMENT) Zohra Jackson [id number] Zohra Jackson 02/20/2025 [facility] [facility] A - [facility]-PENDING S[facility] TO [facility] (MEDICARE) Zohra Jackson [id number] Zohra Jackson 08/27/2024 1 [employer] (MEDICARE REPLACEMENT/A DVANTAGE - PPO) Zohra Jackson [id number] Zohra Jackson Notes Date Note Type Note Provider Name and Address Organization Details Recorded Time 08/20/2024 text/html Annual WellnessReported by PatientSocial/Behavior al HistoryFor diet and nutrition, patient reportshealthy diet. For fracture risk, patient reportsno history of fractures,no recent explained fracture,no sudden unexplained fractures, andno previous musculoskeletal injuries. For physical activity, patient reportsrecent increase in physical activityandgood physical condition. For additional lifestyle factors, patient reportsno tobacco useandno alcohol intake.Mental Status:For depression risk, patient reportsnever feels sad, empty, or tearful,no loss of interest in activities,no significant changes in weight,no sleep disturbances or insomnia,no agitation,no loss of energy,no feelings of worthlessness or guilt,no thoughts of suicide,no history of depression, andno history of mood disorders.Functional AbilityFor hearing, patient reportsno loss of hearing. For vision, patient reportsno vision problems(wears corrective lenses).ROS as noted in the HPI Pt presents to establish care, Previous PCP was Dr. Murillo and Dr. Peter Loving at [facility] She takes amlodipine 5 mg daily, losartan 100 mg daily, and metoprolol succ er 50 mg daily for HTNShe monitors bp at home, ranging from 103/62 to 140/76, mostly 120-130's. She has lost approx 12 lbs over the last several months, BP has improved with this weight loss. Using Xanax as needed, very rare, maybe once a week at night, if I use it, it's to help me sleep .She was prescribed Xanax when she was having increased anxiety r/t her high blood pressure, she would worry about how high it was getting and it would make her very anxious. 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 Mammo UTD, last in 2023: benign, one year f/u.Colonoscopy UTD, no polyps, unsure if last performed at [facility] or the hospital.Bone Scan 11/28/23: IMPRESSION:Osteopenia lumbar spine. Osteopenia femoral necks. H/o issues with Vit D, has been told maybe getting too much previously. Mitesh Dumont, DO [address] [place] [address], [phone], [facility] LG[facility]iaLG[facility]ia[facility]. 08/20/2024 09:35:18 12/25/2024 text/html ROS as noted in the HPI walk-in; PCP Dr. Dumont Patient thinks she got in to chiggers. Bites and rash on both feet. Itchy but not painful. She's tried hydrocortison cream, anti itch lotion and rubbing alcohol. Denies pain or drainage from the rash. no swelling. IZAIAH HARRIS [address] [place] [address], [phone], [facility] LAmnaC. 12/27/2024 18:05:17 02/20/2025 text/html CoughReported by PatientROS as noted in the HPI walk in patientpatient is here today for sinus congestion, sinus drainage in her throat, left ear pain and cough that started about a week ago. 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 IZAIAH HARRIS [address] [place] [address], [phone], [facility] 02/20/2025 17:54:36 03/03/2025 text/html Medicare Annual Wellness VisitReported by PatientSocial/Behavior al HistoryFor physical activity, patient reportsdoes not exercise [...] do things occasionally. She was seen in [place] on 02/20/25 for URI, treated with Prednisone [...] write something down. No Advance Direct[place] [facility] [place]. She has talked to her daughter about this several times, however they haven't ever gone and had anything official done. Lives alone, no issues with performing ADL's. Mammo last 11/28/23: benign, recommend 1 year f/u. Colonoscopy 11/20/19 at [facility] with myself: internal hemorrhoids, repeat 10 years. Bone Scan 11/28/23:IMPRESSION:Ost eopenia lumbar spine. Osteopenia femoral necks.Patient's FRAX calculated 10 year probability for major osteoporotic fracture is 7.0% and osteoporotic hip fracture is 1.4%. Former smoker Mitesh Dumont, DO [address] [place] [address], [phone], [facility], [place] 03/03/2025 09:12:14 OBGyn Episode No OBEpisode recorded.
--- OUTSIDE RECORDS SUMMARY | 2025-05-06 21:26 | XMS_ITS | Continuity of Care Document ---
Author Organization SON - Abrahan Cote, [facility]) Address [address] [place] [address] Assessment No assessment recorded. Plan of Treatment Reminders Order Date Submit Date Provider Last Modified By Organization Details Last Modified Time Details Appointments None recorded. Lab None recorded. Referral None recorded. Procedures None recorded. Surgeries None recorded. Imaging None recorded. Medication Orders benzonatate 200 mg capsule 2024 025 [facility]acy #[id number], [address], [address], 15:31:56 prednisone 20 mg tablet 2024 025 [facility]armacy #[id number], [address], [address], 05:01:15 Patient TargetsNo targets recorded. Patient InstructionsNo instructions recorded. Reason for Referral None Reported. Results Created Date Observation Date Name Description Value Unit Range Abnormal Flag Note LastModifiedBy Organization Detail LastModifiedTime 03/05/2003/05/2025 MAMMO , scree lewis, digit al, bilat eral No observ ation record ed. [facility] [address] [place], [address], 03/11/2025 11:51:46 Result Notes None recorded. Problems Name Problem SNOMED Code Status Onset Date Resolution Date Notes Provider Name and Address Organization Details Recorded Time Tachycar ileana 0782322 Completed 200408/20/2024 TACHYCAR ILEANA; 10/21/19 05 4:53PM by Jose Caceres MD, Office Visit; Promoted ; acuity set as *; Isela tomlin [facility] 5 09:04:02 History of hysterec colin 868555377 Completed 200408/20/2024 Hysterec colin; Vaginal; 10/21/19 05 4:53PM by Jose Caceres MD, Office Visit; Promoted ; acuity set as *; Isela tomlin [facility] 5 07:57:49 Insomnia 973627837 Active 2004 Insomnia ; 10/21/19 05 4:53PM by Jose Caceres MD, Office Visit; Promoted ; acuity set as *; Isela Tao nabor [facility] 5 07:57:51 [facility] 98639533 Active 2004 [facility]; 10/21/19 05 4:53PM by Jose Caceres MD, Office Visit; Promoted ; acuity set as *; Isela Tao nabor [facility] 5 07:57:46 Anxiety disorder 621044119 [facility] 2024 [facility] 07:58:14 Gastroes ophageal reflux disease without esophagi tis 368145932 Active [address] [facility] 5 07:58:22 Burnette neuroma of bilatera l feet 05709442132 459508 Active [address] [facility] 5 09:04:33 Problem Notes None recorded. Procedures Surgical History Date Name Laterality Status Provider Name and Address Organization Details Recorded Time [facility] 09:02:30 [facility] 09:02:46 [facility]/20[facility]24 09:03:26 Imaging Results None recorded. Procedure [...] and Address Organization Details Last Updated DateTime 165.1 cm 26 kg/m2 24004.4 1 g 98 % 86 /min 16 /min 98.2 [degF] 134/70 mm[Hg] Beba Davis [facility] 15:24:09 Social History Question Answer Notes LastModified by Organizat ion Details LastModified Time Tobacco Smoking Status Former Smoker Isela tomlin [facility] 08/20/2024 09:05:28 Do You [...] Did You Quit Smoking? 16+yearssinc elastcigaret te [email or web address] Information not available 08/20/2024 What Is Your Current Housing Status? Lives In Own Home Lives Alone Information not available 03/03/2025 Do You Have A Medical Power Of Redrying Machine Operator? No Information not available 03/03/2025 What Was The Date Of Your Most Recent Tobacco Screening? 02/20/2025 [email or web address] Information not available 02/20/2025 Have You Used IV Drugs? No [email or web address] Information not available 08/20/2024 Do You Have [...] recreational drugs? Yes CBD gummies for sleep [email or web address] Information not available 08/20/2024 Do you or have you ever used any other forms of tobacco or nicotine? No [email or web address] Information not available 08/20/2024 What is your level of alcohol consumption? None [email or web address] Information not available 08/20/2024 Are you able [...] nicotine-free cigarettes, vape, or chewing tobacco? No [email or web address] Information not available 08/20/2024 Mental Status Question Answer Note LastModified by Organization D etails LastModified Time Do you have difficulty concentrating, remembering or making decisions? No Information no t available 03/03/2025 Family History Relationship Description Onset Age of this Age Resolved Age Notes LastModified by Organization Details LastModified Time Sister Diabetes mellitus [email or web address] Not available 2024 09:00:05 Sister Heart disease [email or web address] Not available 2024 09:02:06 Father Multiple myeloma 75 [email or web address] Not available 2024 09:00:19 Brother Malignant neoplasm of esophagus 65 [email or web address] Not available 2024 09:00:30 Brother Myocardial infarction [email or web address] Not available 08/20 09:01:56 Mother Aneurysm 30 [email or web address] Not availabl e 08/20/2024 09:00:41 Paternal Aunt Malignant neoplasm of breast [email or web address] Not available 2024 09:01:10 Paternal Grandmother Malignant neoplasm of breast [email or web address] Not available 2024 09:01:10 Maternal Grandmother Malignant neoplasm of colon [email or web address] Not available 2024 09:01:24 Maternal Grandmother Diabetes mellitus [email or web address] Not available 2024 09:01:30 Maternal Aunt Malignant neoplasm of breast [email or web address] Not available 2024 09:01:40 Maternal Aunt Malignant neoplasm of breast [email or web address] Not available 2024 09:01:44 Medical History No medical history recorded. Gynecological HistoryNo gynecological history recorded. Obstetrics History GPAL:G 0 P 0 0 0 0 Immunizations Vaccine Type Date Status Note Provider Nam e and Address Organization Details Recorded Time zoster recombinant [address] [facility] 08/20/2024 08:52:37 zoster recombinant [address] [facility] 08/20/2024 08:52:37 Influenza, high-dose, quadrivalent, PF [address] [facility] 08/20/2024 08:52:37 COVID-19, mRNA, LNP-S, PF, 30 mcg/0.3 mL dose [address] [facility] 08/20/2024 08:52:37 COVID-19, mRNA, LNP-S, PF, 30 mcg/0.3 mL dose [address] [facility] 08/20/2024 08:52:37 COVID-19, mRNA, LNP-S, PF, 30 mcg/0.3 mL dose [address] [facility] 08/20/2024 08:52:37 Influenza, split virus, trivalent, preservative [address] [facility] 08/20/2024 08:52:37 Influenza, split virus, trivalent, preservative [address] [facility] 08/20/2024 08:52:37 Past Encounters Encounter ID Performer Location Encounter Start Date Encounter Closed Date Diagnosis/Indication Diagnosis SNOMED-CT Code Diagnosis ICD10 Code Diagnosis IMO Codes Diagnosis Note [id number] IZAIAH HARRIS [facility] ([facility]) [address] [place] [phone] 02/20/2025 15:15:34 02/20/2025 17:56:32 Acute upper respiratory infection 55012072 J06.9 2456 Discussed use of otc medication s for symptom management .Push oral fluids and rest.If you develop fever, sob, or start feeling worse then return for re-evaluat ion. Health Concerns Section Related Observation LastModified by Organization Detai ls LastModified Time None Recorded Concern Status LastModified by Organization Details LastModified Time None Recorded Payers Encounter Date Sequence Insurance Name Policy Number Policy Alaniz Covered Member ID Alaniz Member ID Guarantor Name 02/20/2025 1 MEDICARE [place]: WPS Zohra Deb Manuel [id number] Zohra Jackson 02/20/2025 2 [facility] [employer] (MEDICARE SUPPLEMENT) Zohra Jackson [id number] Zohra Jackson Notes Date Note Type Note Provider Name and Address Organization Details Recorded Time 02/20/2025 text/html CoughReported by PatientROS as noted in the HPI walk in patientpatient is here today for sinus congestion, sinus drainage in her throat, left ear pain and cough that started about a week ago. 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 ALEXUS RAMSEY, [facility] [address] [place], [address], [facility] [place] 02/20/2025 17:54:36 OBGyn Episode No OBEpisode recorded.
[2025-05-06 21:53] VITALS: BP 154/90; PULSE 75; RESP 16; TEMP 36.2; O2SAT 97; BMI 26.6
--- NOTE | 2025-05-07 03:00 | W.ED.NECK ---
HPI - Neck Pain/Injury General: Chief Complaint: Neck Pain/Injury Stated Complaint: Lt side of neck hurting and rib pain Time Seen by Provider: 05/07/25 02:59 History of Present Illness: 69-year-old female past medical history significant for hypertension, acid reflux, hyperlipidemia, family history significant for cardiac disease, presenting to the emergency department with onset around this afternoon of left-sided neck pain with worsening of the pain when moving the neck, no falls or trauma, no chest pain, no vision loss or hearing loss, felt as if the carotid pulse on the left side of her neck was diminished as compared to the right, no weakness numbness or tingling of the extremities or difficulty with ambulation, was concerned she was possibly having a cardiac event given her family history and decided to come in for evaluation. She also has a more chronic history of 3-month history of mid to low back pain that she describes as pain to her posterior ribs, she denies abdominal pain, denies exertional dyspnea or cough/shortness of breath, denies leg swelling or calf tenderness. Related Data Home Medications ?Medication ?Instructions ?Recorded ?Confirmed magnesium glycinate 1 mg PO 10/24/23 08/13/24 marijuana gummies 1 gummy PO .qhs 10/24/23 08/13/24 multivitamin with minerals 1 tab PO DAILY 10/24/23 08/13/24 (Hair,Skin and Nails tablet) Previous Rx's ?Medication ?Instructions ?Recorded ondansetron 4 mg disintegrating 4 mg PO Q8H PRN nausea and 07/17/22 tablet vomiting #30 tabs fluticasone propionate 50 2 spray intranasal DAILY #16 grams 11/06/22 mcg/actuation nasal spray,suspension aspirin 81 mg tablet,delayed 81 mg PO DAILY #30 tabs 04/24/23 release (Adult Aspirin Regimen) [id number] 800 mcg 1 tab PO DAILY #30 tabs 04/24/23 DFE-vitamin K 150 mcg-herb no.289 tablet (Alive Women's 50 Plus Ultra Potency) alprazolam 0.25 mg tablet 0.25 mg PO BID PRN anxiety #60 tabs 10/16/23 calcium carbonate 500 mg PO BID #60 tabs 11/28/23 cholecalciferol (vitamin D3) 10 10 mcg PO DAILY #30 caps 06/26/24 mcg (400 unit) capsule losartan 100 mg tablet 100 mg PO DAILY bp #90 tabs 01/23/24 metoprolol succinate 50 mg 50 mg PO DAILY #90 tabs 01/23/24 tablet,extended release 24 hr pantoprazole 40 mg tablet,delayed 40 mg PO DAILY #90 tabs 01/23/24 release amlodipine 5 mg tablet 5 mg PO DAILY #90 tabs 05/16/24 Allergies Allergy/AdvReac Type Severity Reaction Status Date / Time No Known Allergies Allergy Verified 05/06/25 22:01 PFSH ED PFSH: Medical History Burnette's neuroma Insomnia Hyperlipidemia GERD (gastroesophageal reflux disease) Essential hypertension Surgical History History of bladder surgery Bladder sling 2009 Hx of section Hx of hysterectomy 1985 Family History Other Brain aneurysm CAD (coronary artery disease) Cancer Diabetes Hypertension Multiple myeloma Denies family history of Clotting disorder Anesthesia complication Bleeding disorder Social History Smoking and tobacco/nicotine status: former use of tobacco/nicotine Quit status (tobacco/nicotine): has quit using Year quit tobacco: 1999 Former quit date comment: 30 years Alcohol intake: current Alcohol intake frequency: holidays/special occasions only Substance/Drug Use: current Other substance/drug use details: for sleep Physical Exam Narrative: EXAM NARRATIVE: Gen: A&Ox4, no acute distress, nontoxic appearing HEENT: Normocephalic, atraumatic, no scleral icterus, external ears normal, moist mucous membranes Neck: Supple, full range of motion, no observable masses, tenderness palpation of the left side of the neck posteriorly and laterally, no swelling bruising or skin changes, carotid pulse palpable bilaterally, no bruits, pain to the neck is worse with lateral flexion of the neck to the left, not exacerbated by flexion/extension Lungs: No Respiratory distress, Lungs clear to auscultation bilaterally no rales, rhonchi, wheezing CV: Regular rate and rhythm, no murmur, no pitting edema to lower extremities bilaterally Abdomen: Soft, nondistended, nontender to palpation MSK: No joint swelling, FROM all 4 extremities Skin: No rashes, petechiae, lesions. Normal color per patient. Neuro: Alert and oriented, no slurred speech, sensation and strength grossly intact all 4 extremities Psych: Appropriate for situation. Course Reevaluation(s): Reevaluation #1: Patient reassessed, currently sleepy but otherwise feels well. remainder of blood work reassuring, recommend ice and NSAIDs, return precautions discussed to include any neurologic symptoms severe headaches weakness numbness or tingling, slurred speech, chest pain, otherwise follow-up with PCP for further evaluation.. 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 Lab Data Normal troponin no leukocytosis or anemia normal kidney function normal electrolytes 05/07/25 04:25 05/07/25 04:25 Laboratory Results WBC 5.71 10^3/uL (3.29-11.43) 05/07/25 04:25 RBC 4.23 10^6/uL (3.85-5.65) 05/07/25 04:25 Hgb 13.00 g/dL (11.27-16.99) 05/07/25 04:25 Hct 39.2 % (36-47) 05/07/25 04:25 MCV 92.7 fl (85-98) 05/07/25 04:25 MCH 30.7 pg (27-33) 05/07/25 04: MCHC 33.2 g/dL (30-55) 05/07/25 04:25 RDW 13.3 % (12.1-15.1) 05/07/25 04:25 Plt Count 260 10^3/cmm (157-399) 05/07/25 04:25 MPV 9.4 fL (7.4-10.4) 05/07/25 04:25 Neut % (Auto) 47.2 % 05/07/25 04:25 Lymph % (Auto) 38.5 % 05/07/25 04:25 [place] % (Auto) 9.1 % 05/07/25 04:25 Eos % (Auto) 3.2 % 05/07/25 04:25 Baso % (Auto) 1.8 % 05/07/25 04:25 Neut # (Auto) 2.70 10^3/uL (1.8-7.7) 05/07/25 04:25 Lymph # (Auto) 2.2 10^3/uL (0.8-4.8) 05/07/25 04:25 [place] # (Auto) 0.5 10^3/uL (0.2-0.9) 05/07/25 04:25 Eos # (Auto) 0.2 10^3/uL (0.0-0.8) 05/07/25 04:25 Baso # (Auto) 0.1 10^3/uL (0.0-0.1) 05/07/25 04:25 Nucleated RBC % (auto) 0 % 05/07/25 04:25 Nucleated RBCs # 0.0 /100WBC 05/07/25 04:25 Sodium 141 mmol/L (136-145) 05/07/25 04:25 Potassium 3.8 mmol/L (3.5-5.1) 05/07/25 04:25 Chloride 104 mmol/L (98-107) 05/07/25 04:25 Carbon Dioxide 27 mmol/L (22-29) 05/07/25 04:25 Anion Gap 13.8 (5-19) 05/07/25 04:25 BUN 16 mg/dL (8-23) 05/07/25 04:25 Creatinine 0.8 mg/dL (0.5-0.9) 05/07/25 04:25 GFR Calculation 71.3 mL/min (90-130) L 05/07/25 04:25 Glucose 92 mg/dL (65-115) 05/07/25 04:25 Calculated Osmolality 293 mOsm/kg (285-295) 05/07/25 04:25 Calcium 8.9 mg/dL (8.5-10.5) 05/07/25 04:25 Troponin T Baseline < 6 ng/L (0-10) 05/07/25 04:25 No radiology studies performed this visit EKG Data EKG 1: I personally reviewed and interpreted this EKG as follows: EKG interpretation date: 05/07/25 EKG interpretation time: 03:28 Interpretation: Sinus bradycardia 53 bpm, no STEMI, no ectopy, QTc 466 ms, normal axis Discharge Plan Discharge Patient Disposition: Home Clinical Impression: Strain of neck muscle Condition: Stable Prescriptions: No Action fluticasone propionate 50 mcg/actuation spray,suspension 2 spray intranasal DAILY Qty: 16 0RF Rx Instructions: administer into each nostril aspirin [Adult Aspirin Regimen] 81 mg tablet,delayed release (DR/EC) 81 mg PO DAILY Qty: 30 0RF Alive Women 50 Pls Ult Potency 800 mcg DFE- 150 mcg tablet 1 tab PO DAILY Qty: 30 0RF Hair,Skin and Nails Tablet 1 tab PO DAILY marijuana gummies 1 gummy PO .qhs magnesium glycinate 100 mg magnesium capsule 1 mg PO ondansetron 4 mg tablet,disintegrating 4 mg PO Q8H PRN (Reason: nausea and vomiting) Qty: 30 0RF alprazolam 0.25 mg tablet 0.25 mg PO BID PRN (Reason: anxiety) Qty: 60 2RF calcium carbonate 500 mg calcium (1,250 mg) tablet 500 mg PO BID Qty: 60 0RF cholecalciferol (vitamin D3) 10 mcg (400 unit) capsule 10 mcg PO DAILY Qty: 30 0RF losartan 100 mg tablet 100 mg PO DAILY Qty: 90 3RF metoprolol succinate 50 mg tablet extended release 24 hr 50 mg PO DAILY Qty: 90 3RF pantoprazole 40 mg tablet,delayed release (DR/EC) 40 mg PO DAILY Qty: 90 3RF amlodipine 5 mg tablet 5 mg PO DAILY Qty: 90 3RF Discharge Orders: Discharge ED (Routine); Ordered 05/07/25 Ordered By: Cabrera Sandra Referrals: Peter Loving NP [Primary Care Provider, Family Practice] Patient Instructions: Acute Neck Pain (ED), Patient Portal & [facility]ales Instructions Print Language: Faroese Coding Level of Care Code ED Bias Machine Operator Helper for Angus Hughes
[2025-05-07 03:11] VITALS: BP 149/78; PULSE 57; RESP 16; O2SAT 96
[2025-05-07] MEDS: orphenadrine 30 mg/mL Inj 2 mL 60 MG IM (03:18)
--- NOTE | 2025-05-07 03:28 | ECG_ITS ---
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 Measurements Intervals [place] Rate: 53 P: 60 AK: 129 QRS: 17 QRSD: 83 T: 56 QT: 482 QTc: 456 Interpretive Statements SINUS BRADYCARDIA No previous ECG available for comparison Electronically Signed On 05-08-2025 18:48:24 RECONCILEMENT CLERK by Beny Holcomb M.D. [id number]
[2025-05-07 03:30] VITALS: BP 132/82; PULSE 59; RESP 14; O2SAT 94
[2025-05-07 04:00] VITALS: BP 115/61; PULSE 55; RESP 13; O2SAT 98
[2025-05-07 04:30] VITALS: BP 125/68; PULSE 56; O2SAT 95
[2025-05-07 04:32] LABS: Hematocrit 39.2 % (36-47); Hemoglobin 13.00 g/dL (11.27-16.99); Mean Corpuscular HGB Conc 33.2 g/dL (30-55); Mean Corpuscular Hemoglobin 30.7 pg (27-33); Mean Corpuscular Volume 92.7 fl (85-98); Nucleated Red Blood Cells % 0 %; Platelet Count 260 10^3/cmm (157-399); Red Blood Count 4.23 10^6/uL (3.85-5.65); White Blood Count 5.71 10^3/uL (3.29-11.43)
[2025-05-07 04:50] LABS: Troponin(5th) Baseline < 6 ng/L (0-10)
[2025-05-07 04:53] LABS: Anion Gap 13.8 (5-19); Blood Urea Nitrogen 16 mg/dL (8-23); Calcium 8.9 mg/dL (8.5-10.5); Carbon Dioxide 27 mmol/L (22-29); Chloride 104 mmol/L (98-107); Glucose 92 mg/dL (65-115); Osmolality Calculated 293 mOsm/kg (285-295); Potassium 3.8 mmol/L (3.5-5.1); Sodium 141 mmol/L (136-145)
[2025-05-07 05:00] VITALS: BP 116/55; PULSE 61; RESP 14; O2SAT 97
[2025-05-07 05:26] VITALS: BP 116/55; PULSE 63; O2SAT 92
== END 2025-05-07 05:27 | disposition home or self-care (01) ==
PROVIDERS: Emergency Provider Student in an Organized Health Care Education/Training Program; PCP Clinical Nurse Specialist Adult Health
DX: S16.1XXA Strain of muscle, fascia and tendon at neck level, initial encounter (principal); Z79.82 Long term (current) use of aspirin; Z87.891 Personal history of nicotine dependence; E78.5 Hyperlipidemia, unspecified; I10 Essential (primary) hypertension; X58.XXXA Exposure to other specified factors, initial encounter
CPT/HCPCS: 36415; 80048; 84484; 85025; 93005; 96372; 99284; J1885; J2360